=== PATIENT | female | born 1965 | race Caucasian/White ===

== ENCOUNTER 2021-07-09 16:59 | Emergency (ER) | payer BC, SELFPAY ==
[2021-07-09 19:56] VITALS: BP 144/68; PULSE 78; RESP 16; TEMP 37.2; O2SAT 99; BMI 30.2
[2021-07-09 20:20] LABS: COVID-19 Test Negative (Negative)
--- NOTE | 2021-07-09 22:42 | ED_ITS ---
HPI - URI/Sore Throat General Chief Complaint: Upper Respiratory Symptoms Stated Complaint: sore throat , ear pain Time Seen by Provider: 07/09/21 22:07 Source: patient Mode of arrival: ambulatory Limitations: no limitations History of Present Illness HPI Narrative: Patient comes to emergency room complaining of 5 days of sore throat and bilateral ear pressure. Patient was tested for COVID-19, influenza, strep on July 05. Patient states she tested negative. Patient states that she does not feel any better, now she has pain with swallowing. Patient denies chest pain, no shortness of breath, no fever chills. Related Data Allergies Allergy/AdvReac Type Severity Reaction Status Date / Time shellfish derived Allergy Severe ANAPHYLAXIS Unverified 04/26/20 15:54 [SHELLFISH DERIVED] Penicillins Allergy Unknown RASH Unverified 04/26/20 15:54 Review of Systems Review of Systems: Constitutional : No Weight loss, No Fever, No Chills, No Night Sweats, No Fatigue, No Malaise ENT/Mouth : No Hearing loss, No Ear Pain, No Nasal Congestion, No Sinus Pain, no hoarseness, complaining of sore throat, pain swallowing but no difficulty swallowing. Eyes: No Eye Pain, No Swelling, No Redness, No Foreign Body, No Discharge, No Vision Changes Cardiovascular : No Chest Pain, No SOB, No Dyspnea on Exertion, No Orthopnea, No Edema, No Palpitations Respiratory : No Cough, No Sputum, No Wheezing, No Smoke Exposure, No Dyspnea Gastrointestinal : No Nausea, No Vomiting, No Diarrhea, No Constipation, No abdominal Pain, No Hematochezia, No Melena Genitourinary : no irregular bleeding, No Dysuria, No Urinary Frequency, No Hematuria, No Urinary Incontinence, No Urgency, No Flank Pain, No Urinary Flow Changes, No Hesitancy Musculoskeletal : No joint pain, No Myalgias, No Joint Swelling Skin : No Skin Lesions, No rash Neuro : No Weakness, No Numbness, No Paresthesias, No Loss of Consciousness, No Dizziness, No Headache Psych : No Anxiety/Panic, No Depression, No SI/HI/AH/VH, No Social Issues, Heme/Lymph: No Bruising, No Bleeding,No Lymphadenopathy Endocrine : No Polyuria, No Polydipsia, No Temperature Intolerance PMFSH Past Medical History Medical History No known health problems Social History Social History Advance Directives: No Advance Directives Information Provided: Yes Patient : No Physical Exam Vital Signs: Vital Signs: Last Vital Signs Temp 98.9 F 07/09/21 19:56 Pulse 78 07/09/21 19:56 Resp 16 07/09/21 19:56 BP 144/68 H 07/09/21 19:56 Pulse Ox 99 07/09/21 19:56 Body Mass Index 30.2 Const: Other: Appearance: Alert. Oriented X3. No acute distress. Eyes: Pupils equal, round and reactive to light. ENT: Erythematous oropharynx with no exudates, no abscesses visualized. Tympanic membranes with clear fluid behind the membranes, no erythema in canal bilaterally Neck: Normal inspection. Neck supple. No lymph nodes noted. No crepitus CVS: Normal heart rate and rhythm. Pulses normal. Normal S1 and S2 Respiratory: No respiratory distress. Breath sounds normal. No Wheezing. No rales Abdomen: Soft and nontender. No rigidity. No distention. good BS x4 Skin: Skin warm and dry. Normal skin color. Normal skin turgor. Extremities: No lower extremity edema. No lower extremity edema. No L acerations. No Rash Neuro: Oriented X 3. No motor deficit. No sensory deficit. Moving all extermities. No slurred speech. Course Course Course Narrative: Patient's rapid strep and COVID test were both negative. Patient likely has viral pharyngitis. Patient was given 1 dose of p.o. Decadron and viscous lidocaine. MDM - URI/Sore Throat Lab Data Labs: Lab Results 07/09/21 07/09/21 Range/Units 19:49 22:30 COVID-19 (JOSSY) Negative (Negative) COVID-19 Clin Com See Note S. pyogenes GrpA ANASTACIA Negative (Negative) Discharge Plan Discharge Clinical Impression: Acute viral pharyngitis Patient Disposition: Home, Self-Care Instructions: Pharyngitis (ED) Additional Instructions: Please follow-up with your primary care physician tomorrow. If you have any worsening or new symptoms, please return to the emergency room or call 911
[2021-07-09 22:50] LABS: Strep A Nucleic Acid Negative (Negative)
[2021-07-09] MEDS: dexAMETHasone sod phosphate 4 MG/ML VIAL 6 MG IVPUSH (22:54)
[2021-07-09] MEDS: Lidocaine HCl Viscous 2 % 15 ML SOLUTION MUCOUS MEM (22:54)
[2021-07-09 23:54] VITALS: BP 134/80; PULSE 75; RESP 18; TEMP 37; O2SAT 98
== END 2021-07-10 00:09 | disposition home or self-care (01) ==
PROVIDERS: Emergency Provider Emergency Medicine; PCP Internal Medicine
DX: J02.8 Acute pharyngitis due to other specified organisms (principal); Z20.822 Contact with and (suspected) exposure to COVID-19; H92.03 Otalgia, bilateral
CPT/HCPCS: 36415; 87635; 87651; 96374; 99284; J1100